=== PATIENT | male | born 1940 | race Caucasian/White ===

== ENCOUNTER 2021-10-11 13:21 | Outpatient (CLI) | payer MEDICARE | END 2021-10-11 13:22 | disposition home or self-care (01) | LOC: CSHMRI 13:21 | PROVIDERS: ATTEND Neurological Surgery | DX: M54.16 Radiculopathy, lumbar region (principal); M51.26 Other intervertebral disc displacement, lumbar region; M48.061 Spinal stenosis, lumbar region without neurogenic claudication; Z98.890 Other specified postprocedural states | CPT/HCPCS: 72158; 82565 ==